=== PATIENT | male | born 1990 | race Caucasian/White ===

== ENCOUNTER 2022-11-26 11:24 | Outpatient (CLI) | payer BC | END 2022-11-26 11:25 | disposition home or self-care (01) | LOC: BURRAD 11:24 | PROVIDERS: ATTEND Family Medicine | DX: R09.89 Other specified symptoms and signs involving the circulatory and respiratory systems (principal); M48.8X2 Other specified spondylopathies, cervical region | CPT/HCPCS: 72050 ==